=== PATIENT | female | born 1945 | race Caucasian/White ===

== ENCOUNTER 2017-04-09 13:28 | Outpatient (CLI) | payer OTHER | END 2017-04-09 13:43 | disposition home or self-care (01) | LOC: NUCLEAR 13:28 | DX: M81.0 Age-related osteoporosis without current pathological fracture (principal) ==

== ENCOUNTER 2017-05-14 08:25 | Outpatient (CLI) | payer OTHER ==
[~2017-05-14] VITALS: Ht 149.9 cm; Wt 62.6 kg
== END 2017-05-14 08:50 | disposition home or self-care (01) ==
LOC: OFIC 805 08:25
DX: H60.8X2 Other otitis externa, left ear (principal)

== ENCOUNTER → 2017-05-28 | Outpatient (CLI) | payer OTHER ==
[~2017-05-28] VITALS: Ht 121.9 cm; Wt 62.6 kg
== END | disposition home or self-care (01) ==
LOC: OFIC 805 08:05
DX: H60.8X3 Other otitis externa, bilateral (principal)

== ENCOUNTER 2017-08-05 11:13 | Outpatient (CLI) | payer OTHER ==
[~2017-08-05] VITALS: Ht 121.9 cm; Wt 62.6 kg
== END 2017-08-05 11:30 | disposition home or self-care (01) ==
LOC: OFIC 805 11:13
DX: R04.0 Epistaxis (principal); R09.81 Nasal congestion

== ENCOUNTER 2017-08-26 10:27 | Outpatient (CLI) | payer OTHER | END 2017-08-26 10:36 | disposition home or self-care (01) | LOC: RAD 10:27 | DX: M50.33 Other cervical disc degeneration, cervicothoracic region (principal) ==

== ENCOUNTER 2017-09-03 08:29 | Outpatient (CLI) | payer OTHER ==
[~2017-09-03] VITALS: Ht 121.9 cm; Wt 63.5 kg
== END 2017-09-03 08:45 | disposition home or self-care (01) ==
LOC: OFIC 805 08:29
DX: R04.0 Epistaxis (principal); G44.89 Other headache syndrome

== ENCOUNTER 2018-08-04 10:10 | Outpatient (CLI) | payer OTHER ==
[~2018-08-04] VITALS: Ht 121.9 cm; Wt 63.5 kg
== END 2018-08-04 10:25 | disposition home or self-care (01) ==
LOC: OFIC 805 10:10
DX: R68.89 Other general symptoms and signs (principal); R49.0 Dysphonia; R13.19 Other dysphagia; H60.549 Acute eczematoid otitis externa, unspecified ear

== ENCOUNTER 2019-11-17 11:15 | Outpatient (CLI) | payer OTHER | END 2019-11-17 17:17 | disposition home or self-care (01) | LOC: OFIC 805 11:15 | PROVIDERS: ATTEND Otolaryngology | DX: R68.89 Other general symptoms and signs (principal); R13.19 Other dysphagia; R49.0 Dysphonia; R09.81 Nasal congestion; H61.23 Impacted cerumen, bilateral ==

== ENCOUNTER 2019-11-18 10:51 | Outpatient (CLI) | payer OTHER | END 2019-11-18 10:53 | disposition home or self-care (01) | LOC: TOM 10:51 | PROVIDERS: ATTEND Otolaryngology | DX: J32.0 Chronic maxillary sinusitis (principal) ==

== ENCOUNTER 2019-12-17 11:17 | Outpatient (CLI) | payer OTHER | END 2019-12-17 11:31 | disposition home or self-care (01) | LOC: RAD 11:17 | PROVIDERS: ATTEND Otolaryngology | DX: S62.102A Fracture of unspecified carpal bone, left wrist, initial encounter for closed fracture (principal) ==

== ENCOUNTER → 2019-12-17 | Outpatient (CLI) | payer OTHER | END | disposition home or self-care (01) | LOC: OFIC 805 09:59 | PROVIDERS: ATTEND Otolaryngology | DX: M25.532 Pain in left wrist (principal); L29.8 Other pruritus; R09.81 Nasal congestion ==

== ENCOUNTER → 2020-01-06 | Outpatient (CLI) | payer OTHER | END | disposition home or self-care (01) | LOC: OFIC 805 10:30 | PROVIDERS: ATTEND Otolaryngology | DX: R42 Dizziness and giddiness (principal); H74.8X2 Other specified disorders of left middle ear and mastoid; G25.2 Other specified forms of tremor ==

== ENCOUNTER 2020-04-12 11:21 | Outpatient (CLI) | payer OTHER | END 2020-04-12 18:06 | disposition home or self-care (01) | LOC: OFIC 805 11:21 | PROVIDERS: ATTEND Otolaryngology | DX: R42 Dizziness and giddiness (principal); H74.8X2 Other specified disorders of left middle ear and mastoid; H90.3 Sensorineural hearing loss, bilateral; H61.23 Impacted cerumen, bilateral ==

== ENCOUNTER 2020-04-12 13:56 | Outpatient (CLI) | payer OTHER | END 2020-04-12 14:10 | disposition home or self-care (01) | LOC: RAD 13:56 | PROVIDERS: ATTEND Internal Medicine | DX: M50.33 Other cervical disc degeneration, cervicothoracic region (principal); G93.89 Other specified disorders of brain ==

== ENCOUNTER → 2020-04-22 | Outpatient (CLI) | payer OTHER | END | disposition home or self-care (01) | LOC: MRI 04-21 13:15 | PROVIDERS: ATTEND Neuromusculoskeletal Medicine & OMM | DX: R42 Dizziness and giddiness (principal) | CPT/HCPCS: 70551 ==

== ENCOUNTER 2020-08-04 11:18 | Outpatient (CLI) | payer OTHER | END 2020-08-04 12:07 | disposition home or self-care (01) | LOC: OFIC 805 11:18 | PROVIDERS: ATTEND Otolaryngology | DX: R42 Dizziness and giddiness (principal); G25.2 Other specified forms of tremor; H74.8X2 Other specified disorders of left middle ear and mastoid ==

== ENCOUNTER 2020-11-15 08:44 | Outpatient (CLI) | payer OTHER | END 2020-11-15 09:17 | disposition home or self-care (01) | LOC: NUCLEAR 08:44 | PROVIDERS: ATTEND Otolaryngology | DX: I82.401 Acute embolism and thrombosis of unspecified deep veins of right lower extremity (principal); I87.2 Venous insufficiency (chronic) (peripheral) ==

== ENCOUNTER 2020-11-30 06:54 | Outpatient (CLI) | payer OTHER | END 2020-11-30 07:00 | disposition home or self-care (01) | LOC: TOM 06:54 | PROVIDERS: ATTEND Internal Medicine | DX: K76.0 Fatty (change of) liver, not elsewhere classified (principal); K57.90 Diverticulosis of intestine, part unspecified, without perforation or abscess without bleeding; R10.31 Right lower quadrant pain; R10.11 Right upper quadrant pain; R10.84 Generalized abdominal pain ==

== ENCOUNTER 2021-11-09 07:53 | Outpatient (CLI) | payer OTHER | END 2021-11-09 16:06 | disposition home or self-care (01) | LOC: RAD 07:53 | PROVIDERS: ATTEND Otolaryngology | DX: R13.10 Dysphagia, unspecified (principal) ==

== ENCOUNTER 2021-12-21 10:00 | Outpatient (CLI) | payer OTHER | END 2021-12-21 10:05 | disposition home or self-care (01) | LOC: RAD 10:00 | PROVIDERS: ATTEND Internal Medicine | DX: M19.041 Primary osteoarthritis, right hand (principal) ==

== ENCOUNTER 2022-10-09 10:25 | Outpatient (CLI) | payer OTHER | END 2022-10-09 10:28 | disposition home or self-care (01) | LOC: RAD 10:25 | PROVIDERS: ATTEND Internal Medicine | DX: R10.31 Right lower quadrant pain (principal); R10.11 Right upper quadrant pain ==

== ENCOUNTER 2023-05-07 08:44 | Outpatient (CLI) | payer OTHER | END 2023-05-07 08:51 | disposition home or self-care (01) | LOC: SONOGRAMA 08:44 | PROVIDERS: ATTEND Internal Medicine | DX: K76.0 Fatty (change of) liver, not elsewhere classified (principal); Z91.041 Radiographic dye allergy status ==

== ENCOUNTER 2023-05-22 08:52 | Emergency (ER) | payer OTHER ==
[~2023-05-22] VITALS: Ht 147.3 cm; Wt 60.3 kg
[2023-05-22] MEDS ORDERED: CRESTOR10 MG PO (09:37)
[2023-05-22] MEDS ORDERED: ALTACE10 MG (09:37)
== END 2023-05-22 11:42 | disposition home or self-care (01) ==
LOC: ER 08:52
DX: S00.93XA Contusion of unspecified part of head, initial encounter (principal); W18.39XA Other fall on same level, initial encounter; Y93.89 Activity, other specified; Y92.89 Other specified places as the place of occurrence of the external cause; Y99.9 Unspecified external cause status; Z88.0 Allergy status to penicillin; Z88.8 Allergy status to other drugs, medicaments and biological substances; Z91.041 Radiographic dye allergy status

== ENCOUNTER 2023-10-07 08:49 | Outpatient (CLI) | payer OTHER ==
[~2023-10-07 08:49] MED LIST: ALTACE10 MG; CRESTOR10 MG PO
== END 2023-10-07 09:10 | disposition home or self-care (01) ==
LOC: MRI 08:49
PROVIDERS: ATTEND Otolaryngology
DX: R42 Dizziness and giddiness (principal)
CPT/HCPCS: 70551

== ENCOUNTER → 2023-11-19 | Outpatient (CLI) | payer OTHER | END | disposition home or self-care (01) | LOC: RAD 10:54 | DX: I20.9 Angina pectoris, unspecified (principal) ==

== ENCOUNTER 2024-11-30 15:16 | Emergency (ER) | payer OTHER ==
[~2024-11-30] VITALS: Ht 154.9 cm; Wt 63.5 kg
[2024-11-30] MEDS ORDERED: HYOSCYAMINE SULFATE 0.125 MG TAB.SUBL ONE (17:28)
[2024-11-30] MEDS ORDERED: FAMOTIDINE/PF 20 MG/2 ML VIAL ONE (17:28)
[2024-11-30] MEDS ORDERED: FAMOtidine 10 MG/ML (4ML VIAL) IV ONE (17:30)
[2024-11-30] MEDS ORDERED: HYOSCYAMINE SULFATE 0.125 MG TAB.SUBL SL ONE (17:30)
[2024-11-30 17:59] LABS: BASO % 0.8 % (0.1-1.2); EOS # 0.00 (0.04-0.54); EOS % 0.0 % (0.7-7.0); LYMPH # 0.54 (1.18-3.74); LYMPH % 14.8 % (19.3-53.1); MEAN PLATELET VOLUME 10.20 fl (9.4-12.4); MONO # 0.46 (0.24-0.82); NEUT # 2.60 (1.56-6.13); NEUT % 71.3 % (34.0-71.1); RED CELL DISTRIBUTION WIDTH 12.4 % (11.6-14.4)
[2024-11-30 18:02] LABS: MONO % 12.6 % (4.7-12.5)
[2024-11-30 18:28] LABS: ALT/SGPT 48.0 U/L (12-78); AST/SGOT 69.0 U/L (15-37); BILIRUBIN TOTAL 0.39 mg/dL (0.3-1.2); BUN CREA RATIO 27.0 (7.0-25.0); CREATININE SERUM 0.86 mg/dL (0.55-1.02); GFR 63.33; GLOBULINA 4.0 G/DL (2.4-3.5); GLUCOSE FASTING 102.0 mg/dL (65-100); OSMOLALITY SERUM 270.0 MOSM/KG (275-295)
[2024-11-30 18:55] LABS: COVID-19 AG NEGATIVE (NEGATIVE)
[2024-11-30 20:08] LABS: URINE APPEARANCE Cloudy; URINE BILIRRUBIN Negative (NEGATIVE); URINE BLOOD Moderate; URINE COLOR Dark Yellow; URINE GLUCOSE Negative (NEGATIVE); URINE KETONE Trace (NEGATIVE); URINE LEUKOCYTE Small; URINE NITRATE Negative; URINE PROTEIN 30 (NEGATIVE); URINE UROBILINOGEN 1.0 E.U./dl
[2024-11-30 20:12] LABS: URINE BACTERIA 317.9 uL (0.0-1933); URINE EPITHELIAL CELLS 35.9 uL (0.0-38.8); URINE RBC 33.7 uL (0.0-20.8); URINE WBC 67.3 uL (0.0-23.2)
[2024-11-30 21:10] LABS: URINE CAST > 21.83 uL (0.0-1.40)
[2024-11-30] MEDS ORDERED: BACTRIM DS TAB1 EACH PO (21:37)
[2024-11-30] MEDS ORDERED: PEPCID AC20 MG PO (21:37)
== END 2024-11-30 21:56 | disposition home or self-care (01) ==
LOC: ER 15:16
PROVIDERS: General Practice
DX: R50.9 Fever, unspecified (principal); R19.7 Diarrhea, unspecified; Z88.8 Allergy status to other drugs, medicaments and biological substances; R10.31 Right lower quadrant pain; Z20.822 Contact with and (suspected) exposure to COVID-19; Z91.041 Radiographic dye allergy status; Z88.6 Allergy status to analgesic agent; Z88.0 Allergy status to penicillin; E11.9 Type 2 diabetes mellitus without complications; I10 Essential (primary) hypertension

== ENCOUNTER 2024-12-11 14:41 | Inpatient (IN) | payer OTHER ==
[~2024-12-11] VITALS: Ht 149.9 cm; Wt 64.4 kg
[~2024-12-11 14:41] MED LIST changes: +BACTRIM DS TAB1 EACH PO; +PEPCID AC20 MG PO
--- NOTE | 2024-12-11 15:41 | NUR ---
PACIENTE FEMINA, S/V EN PARAMETROS NORMALES, C/CEACCION ALERGICA Y TRAUMA POR CAIDA, SE UBICA EN K2 PARA SER EVALUADA POR .
[2024-12-11] MEDS ORDERED: 0.9 % SODIUM CHLORIDE 500 ML IV ONE (17:15)
[2024-12-11] MEDS ORDERED: DIPHENHYDRAMINE HCL 50 MG/ML VIAL 1ML IV ONE ×2 (17:15→17:45)
[2024-12-11] MEDS ORDERED: FAMOTIDINE/PF 20 MG/2 ML VIAL IV ONE (17:15)
[2024-12-11] MEDS ORDERED: METHYLPREDNISOLONE SOD SUCC 125 MG VIAL IV ONE (17:15)
[2024-12-11] MEDS ORDERED: DIPHENHYDRAMINE HCL 50 MG/ML VIAL 1ML ONE (17:34)
[2024-12-11] MEDS ORDERED: METHYLPREDNISOLONE SOD SUCC 125 MG VIAL ONE (17:34)
[2024-12-11] MEDS ORDERED: METHYLPREDNISOLONE SOD SUCC 40 MG VIAL IV ONE (17:45)
[2024-12-11 18:01] LABS: BASO % 0.3 % (0.1-1.2); EOS # 0.21 (0.04-0.54); EOS % 1.2 % (0.7-7.0); LYMPH # 1.84 (1.18-3.74); LYMPH % 10.2 % (19.3-53.1); MEAN PLATELET VOLUME 9.60 fl (9.4-12.4); MONO # 0.83 (0.24-0.82); MONO % 4.6 % (4.7-12.5); NEUT # 14.83 (1.56-6.13); NEUT % 82.5 % (34.0-71.1); RED CELL DISTRIBUTION WIDTH 13.3 % (11.6-14.4)
[2024-12-11 18:29] LABS: ALT/SGPT 36.0 U/L (12-78); AST/SGOT 37.0 U/L (15-37); BILIRUBIN TOTAL 0.74 mg/dL (0.3-1.2); BUN CREA RATIO 19.0 (7.0-25.0); CREATININE SERUM 0.78 mg/dL (0.55-1.02); GFR 70.88; GLOBULINA 3.1 G/DL (2.4-3.5); GLUCOSE FASTING 114.0 mg/dL (65-100); OSMOLALITY SERUM 274.0 MOSM/KG (275-295)
--- NOTE | 2024-12-11 19:56 | NUR ---
PACIENTE EVALUADA POR QUIEN ORDENA TRATMIENTO MEDICO, SE LE ORIENTA A PACIENTE SOBRE EL MISMO Y REFIERE ENTENDER, SE LE COLECTAN MUESTRAS DE LABORATORIO Y SE CANALIZA BAJO MEDIDAS ASETPICAS. SE LE ADMINSITRAN MEDICAMENTOS JULISSA ORDEN. SE LE HACE ENTREGA A PACIENTE ENVASE PARA COLECTA DE U/A.
[2024-12-11] MEDS ORDERED: CIPROFLOXACIN IN 5 % DEXTROSE 400 MG/200 ML PIGGYBAG IV ONE ×2 (23:15→23:24)
[2024-12-12 00:44] LABS: URINE APPEARANCE Clear; URINE BILIRRUBIN Negative (NEGATIVE); URINE BLOOD Small; URINE COLOR Yellow; URINE GLUCOSE Negative (NEGATIVE); URINE KETONE 15 (NEGATIVE); URINE LEUKOCYTE Moderate; URINE NITRATE Negative; URINE PROTEIN Negative (NEGATIVE); URINE UROBILINOGEN 0.2 E.U./dl
[2024-12-12 00:51] LABS: URINE BACTERIA 225.5 uL (0.0-1933); URINE CAST 1.46 uL (0.0-1.40); URINE EPITHELIAL CELLS 15.3 uL (0.0-38.8); URINE RBC 7.7 uL (0.0-20.8); URINE WBC 45.6 uL (0.0-23.2)
[2024-12-12] MEDS ORDERED: 0.9 % SODIUM CHLORIDE 1,000 ML IV SCH (02:30)
[2024-12-12] MEDS ORDERED: ACETAMINOPHEN 500 MG GEL..CAP PO PRN (02:30)
[2024-12-12 05:00] VITALS: BP 120/63
[2024-12-12 07:56] LABS: INR 1.33
[2024-12-12 08:24] VITALS: BP 122/70; O2SAT 97
[2024-12-12] MEDS ORDERED: RAMIPRIL 5 MG CAPSULE PO SCH (09:00)
[2024-12-12] MEDS ORDERED: ENOXAPARIN SODIUM 40 MG/0.4 ML SYRINGE SUBCUTANEO SCH (09:00)
[2024-12-12] MEDS ORDERED: CIPROFLOXACIN IN 5 % DEXTROSE 200 ML IV SCH (09:00)
[2024-12-12] MEDS ORDERED: ROSUVASTATIN CALCIUM 10 MG TABLET PO SCH (09:00)
[2024-12-12] MEDS ORDERED: FAMOTIDINE/PF 20 MG in 0.9 % SODIUM CHLORIDE 8 ML IV PUSH SCH (09:00)
[2024-12-12 10:23] VITALS: BP 93/55; O2SAT 99
[2024-12-12] MEDS ORDERED: METHYLPREDNISOLONE SOD SUCC 40 MG VIAL IV SCH (13:00)
[2024-12-12] MEDS ORDERED: DIPHENHYDRAMINE HCL 50 MG/ML VIAL 1ML IV NR (14:00)
[2024-12-12 14:23] LABS: BASO % 0.3 % (0.1-1.2); EOS # 0.02 (0.04-0.54); EOS % 0.2 % (0.7-7.0); LYMPH # 1.72 (1.18-3.74); LYMPH % 14.9 % (19.3-53.1); MEAN PLATELET VOLUME 10.40 fl (9.4-12.4); MONO # 0.42 (0.24-0.82); MONO % 3.6 % (4.7-12.5); NEUT # 9.26 (1.56-6.13); NEUT % 80.2 % (34.0-71.1); RED CELL DISTRIBUTION WIDTH 13.2 % (11.6-14.4)
[2024-12-12 16:09] VITALS: BP 100/58; O2SAT 95
[2024-12-12] MEDS ORDERED: CETIRIZINE HCL 5 MG/5 ML ML PO SCH (17:00)
[2024-12-12] MEDS ORDERED: DIPHENHYDRAMINE HCL 50 MG/ML VIAL 1ML IV SCH (21:00)
[2024-12-13 02:22] VITALS: BP 94/54; O2SAT 98
[2024-12-13 09:08] VITALS: BP 104/48; O2SAT 97
[2024-12-13 16:16] VITALS: BP 118/62; O2SAT 98
[2024-12-13] MEDS ORDERED: CETIRIZINE HCL 5 MG/5 ML ML PO SCH (17:00)
[2024-12-14 02:53] VITALS: BP 128/70; O2SAT 94
[2024-12-14 08:21] VITALS: BP 122/55
[2024-12-14 15:57] VITALS: BP 152/73; O2SAT 98
[2024-12-15 01:27] VITALS: BP 160/70; O2SAT 95
[2024-12-15 09:00] VITALS: BP 135/75
== END 2024-12-15 14:26 | disposition home or self-care (01) | DRG 607 ==
LOC: ER 14:41 → MEDI 12-12 02:43
PROVIDERS: General Practice; Internal Medicine; ADMIT Internal Medicine; ATTEND Internal Medicine
PROC: B020ZZZ Computerized Tomography (CT Scan) of Brain (ICD-10-PCS; principal; 2024-12-11)
DX: L27.1 Localized skin eruption due to drugs and medicaments taken internally (principal); T36.8X5A Adverse effect of other systemic antibiotics, initial encounter

== ENCOUNTER 2025-01-23 09:05 | Outpatient (CLI) | payer OTHER ==
[2025-01-23 10:46] LABS: BUN CREA RATIO 14.0 (7.0-25.0); CREATININE SERUM 0.64 mg/dL (0.55-1.02); GFR 89.06
== END 2025-01-23 23:00 | disposition home or self-care (01) ==
LOC: LAB 09:05
DX: G12.22 Progressive bulbar palsy (principal)

== ENCOUNTER 2025-01-27 07:38 | Outpatient (CLI) | payer OTHER | END 2025-01-27 07:44 | disposition home or self-care (01) | LOC: MRI 07:38 | DX: G23.8 Other specified degenerative diseases of basal ganglia (principal); G12.22 Progressive bulbar palsy; G12.29 Other motor neuron disease | CPT/HCPCS: 70553 ==